=== PATIENT | male | born 1965 | race Caucasian/White ===

== ENCOUNTER 2025-05-21 18:05 | Inpatient (IN) | payer MEDICARE, OTHER ==
[~2025-05-21] VITALS: Ht 188 cm; Wt 66.7 kg
[2025-05-21 18:45] LABS: PLATELET COUNT (AUTO) 218 K/uL (150-450); RED BLOOD CELL COUNT(AUTO) 4.61 MIL/uL (4.5-6.0); RED CELL DISTRIBUTION WIDTH 13.0 % (11.5-15.0); WHITE BLOOD COUNT (AUTO) 9.3 K/uL (4.3-11.0)
[2025-05-21 18:52] LABS: CALCIUM, SERUM 9.2 mg/dL (8.5-10.1); CREATININE 2.6 mg/dL (0.6-1.3); SODIUM SERUM 141 mmol/L (136-145); UREA NITROGEN, BLOOD 51 mg/dL (7-18)
[2025-05-21 18:58] LABS: INR 1.02 (0.91-1.10)
[2025-05-21] MEDS ORDERED: LIDOCAINE HCL/MPF 1% 30 ML VIAL IJ ONE (19:09)
[2025-05-21] MEDS: IV NS 0.9% 500 ML BAG IV ONE (19:22)
[2025-05-21] MEDS ORDERED: MAG HYDROX/AL HYDROX/SIMETH 30 ML UDC PO PRN (21:00)
[2025-05-21] MEDS ORDERED: ACETAMINOPHEN 325 MG TABLET PO PRN (21:00)
[2025-05-21] MEDS ORDERED: MAGNESIUM HYDROXIDE 30 ML UDC PO PRN (21:00)
[2025-05-21] MEDS ORDERED: ONDANSETRON HCL/PF 4 MG/2 ML VIAL IVP PRN (21:00)
[2025-05-21] MEDS ORDERED: Z GUARD REMEDY 4 OZ OINT TP PRN (21:00)
[2025-05-21] MEDS ORDERED: HYDROCODONE/APAP 5/325MG TABLET PO PRN (21:00)
[2025-05-21 21:43] VITALS: BP 155/79; TEMP 98.1; O2SAT 99
[2025-05-21] MEDS: ATORVASTATIN 10 MG TABLET PO SCH (22:54)
[2025-05-22 01:20] VITALS: BP 155/79; TEMP 98; O2SAT 99
[2025-05-22 04:00] VITALS: BP 134/105; TEMP 97.3; O2SAT 99
[2025-05-22 07:14] LABS: PLATELET COUNT (AUTO) 201 K/uL (150-450); RED BLOOD CELL COUNT(AUTO) 4.26 MIL/uL (4.5-6.0); RED CELL DISTRIBUTION WIDTH 12.9 % (11.5-15.0); WHITE BLOOD COUNT (AUTO) 6.5 K/uL (4.3-11.0)
[2025-05-22 07:45] LABS: CALCIUM, SERUM 8.7 mg/dL (8.5-10.1); CREATININE 2.3 mg/dL (0.6-1.3); PHOSPHORUS 3.7 mg/dL (2.5-4.9); SODIUM SERUM 143.0 mmol/L (136-145); UREA NITROGEN, BLOOD 47.0 mg/dL (7-18)
[2025-05-22 08:00] VITALS: BP 167/93; TEMP 97.4; O2SAT 99
[2025-05-22 08:05] LABS: LDL 109.0 mg/dL (0-99)
[2025-05-22] MEDS: PANTOPRAZOLE 40 MG TABLET.DR PO SCH (08:28)
[2025-05-22] MEDS: ASPIRIN 81 MG TAB.CHEW PO SCH (08:29)
[2025-05-22] MEDS: IV NS 0.9% 1,000 ML IV PRN (08:30)
[2025-05-22 12:00] VITALS: BP 160/93; TEMP 97.2; O2SAT 99
[2025-05-22 16:00] VITALS: BP 162/93; TEMP 98.4; O2SAT 99
[2025-05-22] MEDS: CLOPIDOGREL BISULFATE 75 MG TABLET PO SCH (19:07)
[2025-05-22 20:00] VITALS: BP 148/100; TEMP 97.9; O2SAT 100
[2025-05-23] VITALS (7 sets, daily range): BP systolic 128–171; BP diastolic 63–102; TEMP 97.2–98.7; O2SAT 96–100
[2025-05-23 07:14] LABS: PLATELET COUNT (AUTO) 225 K/uL (150-450); RED BLOOD CELL COUNT(AUTO) 4.35 MIL/uL (4.5-6.0); RED CELL DISTRIBUTION WIDTH 12.6 % (11.5-15.0); WHITE BLOOD COUNT (AUTO) 7.0 K/uL (4.3-11.0)
[2025-05-23 07:24] LABS: ASPARTATE AMINOTRANSFERASE 12.0 U/L (15-37); CALCIUM, SERUM 9.0 mg/dL (8.5-10.1); CREATININE 2.0 mg/dL (0.6-1.3); PHOSPHORUS 3.6 mg/dL (2.5-4.9); SODIUM SERUM 145.0 mmol/L (136-145); TOTAL PROTEIN, SERUM 7.5 g/dL (6.4-8.2); UREA NITROGEN, BLOOD 34.0 mg/dL (7-18)
[2025-05-23 07:45] LABS: CREATINE KINASE, TOTAL 77.0 U/L (39-308)
[2025-05-24] VITALS: BP 182/117; TEMP 99.1; O2SAT 97
[2025-05-24 04:00] VITALS: BP 128/96; TEMP 98.9; O2SAT 95
[2025-05-24 07:50] LABS: PLATELET COUNT (AUTO) 229 K/uL (150-450); RED BLOOD CELL COUNT(AUTO) 4.20 MIL/uL (4.5-6.0); RED CELL DISTRIBUTION WIDTH 12.6 % (11.5-15.0); WHITE BLOOD COUNT (AUTO) 7.8 K/uL (4.3-11.0)
[2025-05-24 08:03] LABS: CALCIUM, SERUM 9.0 mg/dL (8.5-10.1); CREATININE 1.9 mg/dL (0.6-1.3); SODIUM SERUM 146.0 mmol/L (136-145); UREA NITROGEN, BLOOD 24.0 mg/dL (7-18)
[2025-05-24 08:05] VITALS: BP 173/95; TEMP 97.6; O2SAT 97
[2025-05-24 08:12] LABS: PHOSPHORUS 2.9 mg/dL (2.5-4.9)
[2025-05-24] MEDS: IV 1/2NS 1000 ML 1,000 ML IV SCH (11:34)
[2025-05-24 12:05] VITALS: BP 148/86; TEMP 97.7; O2SAT 97
[2025-05-24 16:09] VITALS: BP 148/95; TEMP 97.7; O2SAT 97
[2025-05-24 20:00] VITALS: BP 144/96; TEMP 98.4; O2SAT 97
[2025-05-25] VITALS (7 sets, daily range): BP systolic 139–165; BP diastolic 91–107; TEMP 97.9–98.6; O2SAT 96–98
[2025-05-25 08:33] LABS: PLATELET COUNT (AUTO) 230 K/uL (150-450); RED BLOOD CELL COUNT(AUTO) 4.17 MIL/uL (4.5-6.0); RED CELL DISTRIBUTION WIDTH 12.6 % (11.5-15.0); WHITE BLOOD COUNT (AUTO) 6.1 K/uL (4.3-11.0)
[2025-05-25 08:53] LABS: CALCIUM, SERUM 8.7 mg/dL (8.5-10.1); CREATININE 1.9 mg/dL (0.6-1.3); SODIUM SERUM 141.0 mmol/L (136-145); UREA NITROGEN, BLOOD 21.0 mg/dL (7-18)
[2025-05-25 09:03] LABS: PHOSPHORUS 3.3 mg/dL (2.5-4.9)
[2025-05-25] MEDS ORDERED: HALO0.5T2 PO (10:13)
[2025-05-25] MEDS ORDERED: FURO20TA4 PO (10:13)
[2025-05-25] MEDS ORDERED: HYDR-4075 PO (10:13)
[2025-05-25] MEDS ORDERED: BENZ1TAB7 PO (10:13)
[2025-05-25] MEDS ORDERED: METO50TA16 PO (10:13)
[2025-05-25] MEDS ORDERED: ESCI10TA PO (10:13)
[2025-05-25] MEDS ORDERED: CLON0.1T PO (10:13)
[2025-05-25] MEDS ORDERED: LOSA100T31 PO (10:13)
[2025-05-25] MEDS ORDERED: LEVE500T20 PO (10:13)
[2025-05-25] MEDS ORDERED: DIVA250T47 PO (10:13)
[2025-05-25] MEDS ORDERED: ASPI-1169 PO (12:24)
[2025-05-25] MEDS ORDERED: ATOR10TA PO (12:24)
[2025-05-25] MEDS ORDERED: CLOP75TA15 PO (12:24)
[2025-05-26 01:06] LABS: PTH, INTACT 39 pg/mL (15-65)
== END 2025-05-25 22:16 | DRG 56 ==
LOC: ER 18:31 → TELE1 20:42 → MEDSG1 05-24 18:30
PROVIDERS: ADMIT Nurse Practitioner Acute Care; ATTEND Nurse Practitioner Family
DX: I69.322 Dysarthria following cerebral infarction (principal); N17.0 Acute kidney failure with tubular necrosis; E87.0 Hyperosmolality and hypernatremia; E86.0 Dehydration; R62.7 Adult failure to thrive; Z20.822 Contact with and (suspected) exposure to COVID-19; M62.421 Contracture of muscle, right upper arm; D64.9 Anemia, unspecified; I65.23 Occlusion and stenosis of bilateral carotid arteries; Z79.82 Long term (current) use of aspirin; Z79.899 Other long term (current) drug therapy
CPT/HCPCS: 36415; 70450-TC; 71045-TC; 76770-TC; 80048-TC; 80053-TC; 80061-TC; 82550-TC; 82607-TC; 82962-TC; 83735-TC; 83921; 83970; 84100-TC; 84155; 84165; 84425; 84443-TC; 84484-TC; 85025-TC; 85730-TC; 87081-TC; 92507-TC; 92521; 92526; 92611; 93880-TC; 97110-TC; 97116-TC; 97530-TC; G0378; J3490; J7030; J7040

== ENCOUNTER 2025-07-19 23:04 | Inpatient (IN) | payer OTHER ==
[~2025-07-19] VITALS: Ht 167.6 cm; Wt 60.3 kg
[~2025-07-19 23:04] MED LIST: ASPI-1169 PO; ATOR10TA PO; BENZ1TAB7 PO; CLON0.1T PO; CLOP75TA15 PO; DIVA250T47 PO; ESCI10TA PO; FURO20TA4 PO; HALO0.5T2 PO; HYDR-4075 PO; LEVE500T20 PO; LOSA100T31 PO; METO50TA16 PO
[2025-07-20 10:19] LABS: PLATELET COUNT (AUTO) 278 K/uL (150-450); RED BLOOD CELL COUNT(AUTO) 4.42 MIL/uL (4.5-6.0); RED CELL DISTRIBUTION WIDTH 14.5 % (11.5-15.0); WHITE BLOOD COUNT (AUTO) 8.5 K/uL (4.3-11.0)
[2025-07-20 10:25] LABS: CALCIUM, SERUM 9.3 mg/dL (8.5-10.1); CREATININE 1.5 mg/dL (0.6-1.3); SODIUM SERUM 145.0 mmol/L (136-145); UREA NITROGEN, BLOOD 32.0 mg/dL (7-18)
[2025-07-20 10:33] LABS: INR 1.07 (0.91-1.10)
[2025-07-20] MEDS ORDERED: ONDANSETRON HCL/PF 4 MG/2 ML VIAL IVP PRN (13:00)
[2025-07-20] MEDS: BENZTROPINE MESYLATE (1 MG) 1 MG TABLET PO SCH (13:00)
[2025-07-20] MEDS ORDERED: Z GUARD REMEDY 4 OZ OINT TP PRN ×2 (13:00→16:00)
[2025-07-20] MEDS ORDERED: MAG HYDROX/AL HYDROX/SIMETH 30 ML UDC PO PRN (13:00)
[2025-07-20] MEDS ORDERED: MAGNESIUM HYDROXIDE 30 ML UDC PO PRN (13:00)
[2025-07-20] MEDS: IV NS 0.9% 1,000 ML IV PRN (13:40)
[2025-07-20 16:00] VITALS: BP 179/101; TEMP 97.3; O2SAT 98
[2025-07-20] MEDS: METOPROLOL TARTRATE 50 MG TABLET PO SCH (16:30)
[2025-07-20] MEDS: LEVETIRACETAM (250 MG) 250 MG TABLET PO SCH (16:31)
[2025-07-20] MEDS: DIVALPROEX SODIUM 250 MG TABLET.DR PO SCH (16:31)
[2025-07-20] MEDS: HALOPERIDOL 1 MG TABLET PO SCH (16:45)
[2025-07-20 17:30] VITALS: BP 155/85
[2025-07-20 20:00] VITALS: BP 141/92; TEMP 98.4; O2SAT 97
[2025-07-20] MEDS: ATORVASTATIN 10 MG TABLET PO SCH (21:51)
[2025-07-21 07:50] LABS: PLATELET COUNT (AUTO) 243 K/uL (150-450); RED BLOOD CELL COUNT(AUTO) 4.00 MIL/uL (4.5-6.0); RED CELL DISTRIBUTION WIDTH 14.2 % (11.5-15.0); WHITE BLOOD COUNT (AUTO) 4.9 K/uL (4.3-11.0)
[2025-07-21 08:00] VITALS: BP 170/93; TEMP 97.3; O2SAT 100
[2025-07-21] MEDS: ESCITALOPRAM OXALATE (10 MG) 10 MG TABLET PO SCH (08:06)
[2025-07-21] MEDS: LOSARTAN POTASSIUM 50 MG TABLET PO SCH (08:07)
[2025-07-21] MEDS: CLONIDINE HCL 0.1 MG TABLET PO SCH (08:07)
[2025-07-21] MEDS: CLOPIDOGREL BISULFATE 75 MG TABLET PO SCH (08:08)
[2025-07-21] MEDS: ASPIRIN 81 MG TAB.CHEW PO SCH (08:08)
[2025-07-21 08:23] LABS: CALCIUM, SERUM 8.8 mg/dL (8.5-10.1); CREATININE 1.4 mg/dL (0.6-1.3); PHOSPHORUS 3.6 mg/dL (2.5-4.9); SODIUM SERUM 152.0 mmol/L (136-145); UREA NITROGEN, BLOOD 30.0 mg/dL (7-18)
[2025-07-21] MEDS: IV D5W 1,000 ML IV ONE (10:24)
[2025-07-21] MEDS: IV 1/2NS 1000 ML 1,000 ML IV SCH (12:34)
[2025-07-21 16:00] VITALS: BP 113/76; TEMP 97.2; O2SAT 99
[2025-07-21 20:00] VITALS: BP 104/75; TEMP 97.3; O2SAT 100
[2025-07-22 08:00] VITALS: BP 146/86; TEMP 97.5; O2SAT 98
[2025-07-22 11:14] LABS: PLATELET COUNT (AUTO) 217 K/uL (150-450); RED BLOOD CELL COUNT(AUTO) 3.83 MIL/uL (4.5-6.0); RED CELL DISTRIBUTION WIDTH 13.8 % (11.5-15.0); WHITE BLOOD COUNT (AUTO) 5.4 K/uL (4.3-11.0)
[2025-07-22 11:42] LABS: ASPARTATE AMINOTRANSFERASE 20.0 U/L (15-37); CALCIUM, SERUM 8.1 mg/dL (8.5-10.1); CREATININE 1.6 mg/dL (0.6-1.3); PHOSPHORUS 2.9 mg/dL (2.5-4.9); SODIUM SERUM 145.0 mmol/L (136-145); TOTAL PROTEIN, SERUM 6.5 g/dL (6.4-8.2); UREA NITROGEN, BLOOD 32.0 mg/dL (7-18)
[2025-07-22 12:02] LABS: CREATINE KINASE, TOTAL 116.0 U/L (39-308)
[2025-07-22 16:00] VITALS: BP 113/79; TEMP 97.3; O2SAT 99
[2025-07-22] MEDS: IV 1/2NS 1000 ML 1,000 ML IV PRN (20:33)
[2025-07-22 20:43] VITALS: BP 110/73; TEMP 97.2; O2SAT 100
[2025-07-23 06:07] LABS: PTH, INTACT 35 pg/mL (15-65)
[2025-07-23 07:08] LABS: PLATELET COUNT (AUTO) 187 K/uL (150-450); RED BLOOD CELL COUNT(AUTO) 3.60 MIL/uL (4.5-6.0); RED CELL DISTRIBUTION WIDTH 13.8 % (11.5-15.0); WHITE BLOOD COUNT (AUTO) 5.7 K/uL (4.3-11.0)
[2025-07-23 07:08] LABS: APPEARANCE,URINE CLEAR (CLEAR); BLOOD, URINE NEGATIVE Ery/uL (NEGATIVE); LEUKOCYTE ESTERASE ,URINE NEGATIVE (NEGATIVE); NITRITE, URINE NEGATIVE (NEGATIVE); UGLUCOSE NEGATIVE (NEGATIVE)
[2025-07-23 07:29] LABS: CREATININE, URINE 138.8 MG/DL (30.0-125.0); URINE SODIUM, RANDOM 86.0 mmol/l (40-220); URINE TOTAL PROTEIN 15.8 mg/dL (0-11.9)
[2025-07-23 08:55] VITALS: BP 154/89; TEMP 97.5; O2SAT 98
[2025-07-23] MEDS ORDERED: CLONIDINE HCL 0.1 MG TABLET PO PRN (09:30)
[2025-07-23 11:25] LABS: CALCIUM, SERUM 7.9 mg/dL (8.5-10.1); CREATININE 1.3 mg/dL (0.6-1.3); SODIUM SERUM 141.0 mmol/L (136-145); UREA NITROGEN, BLOOD 29.0 mg/dL (7-18)
[2025-07-23 16:14] VITALS: BP 106/69; TEMP 98.6; O2SAT 97
[2025-07-23 19:00] VITALS: BP 130/86; TEMP 98.1; O2SAT 98
[2025-07-23 20:00] VITALS: BP 130/86; TEMP 98.1; O2SAT 98
[2025-07-23] MEDS: ACETAMINOPHEN 325 MG TABLET PO PRN (21:57)
[2025-07-24 07:00] VITALS: BP 153/90; TEMP 97.3; O2SAT 98
[2025-07-24 16:00] VITALS: BP 143/102; TEMP 97.5; O2SAT 96
[2025-07-24 20:00] VITALS: BP 139/101; TEMP 97.7; O2SAT 95
[2025-07-25 08:00] VITALS: TEMP 97.7; O2SAT 100
[2025-07-25 16:00] VITALS: BP 105/78; TEMP 98.4; O2SAT 96
[2025-07-25 16:26] VITALS: TEMP 98.5
[2025-07-25 17:00] VITALS: BP 105/78
== END 2025-07-25 19:37 | DRG 640 ==
LOC: ER 23:07 → MED 07-20 13:22
PROVIDERS: ADMIT Internal Medicine; ATTEND Internal Medicine
DX: E86.1 Hypovolemia (principal); G93.41 Metabolic encephalopathy; N17.0 Acute kidney failure with tubular necrosis; I13.0 Hypertensive heart and chronic kidney disease with heart failure and stage 1 through stage 4 chronic kidney disease, or unspecified chronic kidney disease; W01.0XXA Fall on same level from slipping, tripping and stumbling without subsequent striking against object, initial encounter; I11.0 Hypertensive heart disease with heart failure; I50.9 Heart failure, unspecified; G40.909 Epilepsy, unspecified, not intractable, without status epilepticus; Z86.73 Personal history of transient ischemic attack (TIA), and cerebral infarction without residual deficits; Z79.02 Long term (current) use of antithrombotics/antiplatelets; Z79.82 Long term (current) use of aspirin; Z79.899 Other long term (current) drug therapy; I25.10 Atherosclerotic heart disease of native coronary artery without angina pectoris; I73.9 Peripheral vascular disease, unspecified; N18.9 Chronic kidney disease, unspecified; F32.9 Major depressive disorder, single episode, unspecified; E87.0 Hyperosmolality and hypernatremia; M89.8X9 Other specified disorders of bone, unspecified site; D64.9 Anemia, unspecified
CPT/HCPCS: 36415; 71045-TC; 76770-TC; 80048-TC; 80053-TC; 82550-TC; 82570-TC; 83735-TC; 83970; 84100-TC; 84155; 84165; 84300-TC; 85025-TC; 85730-TC; 92526; 92611; 97110-TC; 97112-TC; 97116-TC; 97530-TC; 97535-TC; A4223; G0378; J3490; J7030; J7070